=== PATIENT | female | born 1975 | race Two or more races ===

== ENCOUNTER 2018-10-23 16:01 | Emergency (ER) | payer SELFPAY ==
--- NOTE | 2018-10-23 16:45 | ER Document Report ---
ED Medical Screen (RME) - General Chief Complaint: Skin Sore(s) Stated Complaint: TOE PAIN Time Seen by Provider: 10/23/18 16:34 Notes: Patient is a 42-year-old female presents to the emergency department with a chief complaint of right great toe pain. Patient states she was seen at the urgent care 12 days ago and had the infection to the right great toe cut and drained. Patient states she was placed on antibiotics for a week which did not seem to help. Patient states that since then she has had an increase in pain that is now radiating to the medial aspect of the right foot. Patient reports that her tetanus shot is up-to-date. Patient states the original injury was 3 weeks ago when her toenail became loose. Patient states it has had minimal drainage from the site. Patient denies history of diabetes. Patient states she is to been taking 800 mg of ibuprofen every 4 hours for the discomfort. TRAVEL OUTSIDE OF THE [place] IN LAST 30 DAYS: No - Related Data Allergies/Adverse Reactions: Penicillins Allergy (Verified 10/23/18 16:03) Past Medical History - Social History Chew tobacco use (# tins/day): No Frequency of alcohol use: None Drug Abuse: None Renal/ Medical History: Denies: Hx Peritoneal Dialysis Physical Exam - Vital signs Vitals: Temp Pulse Resp BP Pulse Ox 98.2 F 59 L 14 126/79 H 98 10/23/18 16:05 10/23/18 16:05 10/23/18 16:05 10/23/18 16:05 10/23/18 16:05 - Extremities Notes: There is erythema and edema to the dorsal aspect of the right great toe. There appears to be a crusted drainage on the nail. There is no obvious swelling to the foot. Course - Re-evaluation Re-evalutation: 10/23/18 16:45 I have greeted and performed a rapid initial assessment of this patient. A comprehensive ED assessment and evaluation of the patient, analysis of test results and completion of the medical decision making process will be conducted by additional ED providers. - Vital Signs Vital signs: Temp Pulse Resp BP Pulse Ox 98.2 F 59 L 14 126/79 H 98 10/23/18 16:05 10/23/18 16:05 10/23/18 16:05 10/23/18 16:05 10/23/18 16:05
--- NOTE | 2018-10-23 17:31 | RADIOLOGY REPORT (SQ) ---
EXAM DESCRIPTION: FOOT RIGHT COMPLETE COMPLETED DATE/TIME: 10/23/2018 5:11 pm REASON FOR STUDY: right great toe pain and swelling COMPARISON: None. EXAM PARAMETERS: NUMBER OF VIEWS: Three views. TECHNIQUE: AP, lateral and oblique radiographic images acquired of the right foot. LIMITATIONS: None. FINDINGS: MINERALIZATION: Normal. BONES: No acute fracture or dislocation. No worrisome bone lesions. JOINTS: No effusion. SOFT TISSUES: Mild soft tissue swelling. No radiopaque foreign body. OTHER: No other significant finding. IMPRESSION: NO FRACTURE. TECHNICAL DOCUMENTATION: JOB ID: [id number] [place]-72 2010 [employer] All Rights Reserved Reading location - IP/workstation name: [email or web address]
[2018-10-23] MEDS ORDERED: LIDOCAINE 1% INJ-PF (10 MG/ML) 30 ML SDV INJ ONE ×2 (17:50→17:52)
[2018-10-23] MEDS ORDERED: LIDOCAINE 4%/TETRACAINE 0.5%/EPI 0.18% 5 ML TOPICAL SOLN TOP ONE (17:50)
--- NOTE | 2018-10-23 17:50 | ER Document Report ---
ED General - General Chief Complaint: Skin Sore(s) Stated Complaint: TOE PAIN Time Seen by Provider: 10/23/18 16:34 Primary Care Provider: DANNY WEST DPM [ACTIVE STAFF] - Follow up in 3-5 days Notes: Patient is a 42 year old female that presents to the emergency department for chief complaint of right great toe pain. Patient states that she had a toe infection about 2 weeks ago, was treated in urgent care, states that it was cut open and pus drainage came out she was placed on antibiotics, she states that it came back and it seems to be worse than it was initially, she describes her pain as a 7 out of 10 describes it is not constant aching pain that shoots up her right great toe, towards the foot, she denies history of diabetes. She states she did complete the course of antibiotics. She denies any fevers, chills, night sweats, chest pain, nausea, vomiting or abdominal pain, no other complaints at this time. She reports that she is had paronychia infections in the past, and had part of her nail removed on this toe many years ago. Past Medical History: Denies chronic medical conditions Past Surgical History: Social History: Denies tobacco, alcohol or drug use. Family History: Reviewed and noncontributory for presenting illness Allergies: Reviewed, see documented allergy list. REVIEW OF SYSTEMS: Other than noted above, the 12 point review of systems was reviewed with the patient and were negative, all pertinent findings are included in the HPI. PHYSICAL EXAMINATION: Vital signs reviewed, nursing noted reviewed. GENERAL: Well-appearing, well-nourished and in no acute distress. HEAD: Atraumatic, normocephalic. EYES: Eyes appear normal, sclera anicteric, conjunctiva are normal. ENT: Moist mucous membranes. NECK: Normal range of motion, supple without lymphadenopathy LUNGS: Breath sounds clear to auscultation bilaterally and equal. No wheezes rales or rhonchi. HEART: Regular rate and rhythm without murmurs EXTREMITIES: The right great toe, has an obvious paronychia, there is slight pus drainage at this time, and swelling and edema to the lateral aspect of the nail. There is tenderness to palpation to this area. Cap refills less than 3 seconds, the rest the patient's extremity exam is grossly unremarkable, good range of motion, and otherwise nontender. NEUROLOGICAL: No focal neurological deficits. Moves all extremities spontaneously Motor and sensory grossly intact on exam. PSYCH: Normal mood, normal affect. SKIN: Warm, Dry, normal turgor, no rashes or lesions noted on exposed skin TRAVEL OUTSIDE OF THE [place] IN LAST 30 DAYS: No - Related Data Allergies/Adverse Reactions: Penicillins Allergy (Verified 10/23/18 16:03) Past Medical History - Social History Smoking Status: Never Smoker Chew tobacco use (# tins/day): No Frequency of alcohol use: None Drug Abuse: None Family History: Reviewed & Not Pertinent Patient has suicidal ideation: No Patient has homicidal ideation: No Renal/ Medical History: Denies: Hx Peritoneal Dialysis Physical Exam - Vital signs Vitals: Temp Pulse Resp BP Pulse Ox 98.2 F 59 L 14 126/79 H 98 10/23/18 16:05 10/23/18 16:05 10/23/18 16:05 10/23/18 16:05 10/23/18 16:05 Course - Re-evaluation Re-evalutation: Patient seen and examined, vital signs reviewed. On my exam the patient was noted to have a significant right-sided paronychia, with adjacent abscess, this was treated with partial nail excision, and I&D of the abscess, and drainage, as noted and procedure section, patient tolerated the procedure well. We will place her on clindamycin, and advise follow-up with podiatry, patient was agreeable with this plan of care and discharged home. Of note x-rays were obtained in triage, and were negative for any bony injury or concern for possible osteomyelitis. Nor did the patient present with a clinical concern for osteomyelitis. - Vital Signs Vital signs: Temp Pulse Resp BP Pulse Ox 98.1 F 60 16 118/70 100 10/23/18 19:05 10/23/18 19:05 10/23/18 19:05 10/23/18 19:05 10/23/18 19:05 Procedures - Incision and Drainage Left Toe Great toe Type: Complex Anesthetic type: 1% Lidocaine mL's of anesthetic: 4 - Digial Block Blade size: 11 I&D procedure: Chlorprep applied, Shurclens applied, Sterile dressing applied Incision Method: Incision made with needle Amount/type of drainage: 3 Notes: Risks and benefits of the procedure were spine to the patient, and verbal consent was given, patient had paronychia, of the right great toe, digital block was performed with 1% lidocaine, patient tolerated well, after good local anesthesia, partial lateral nail removal was performed, the abscess was incised, and drained, there was initially liquid purulent discharge, then thicker purulent discharge, that was expelled after breaking up loculations, with scissors and forceps. Patient tolerated procedure well, it was irrigated with saline, and Shur-Clens, and dressed with a sterile dressing. Discharge - Discharge Clinical Impression: Paronychia Condition: Stable Disposition: HOME, SELF-CARE Instructions: Paronychia ([facility]) Additional Instructions: Please complete the entire course of antibiotics as prescribed, you should take [id number] Tylenol or Motrin for pain, keep it covered when wearing shoes, otherwise he may leave it open to air, please follow-up with the bus attendant/foot doctor, in 3 to 5 days, if needed. If your symptoms worsen, do not hesitate to return to the emergency department. Prescriptions: RX: Clindamycin HCl 300 mg PO TID #21 capsule Referrals: DANNY WEST DPM [ACTIVE STAFF] - Follow up in 3-5 days
[2018-10-23 19:07] VITALS: BP 118/70
== END 2018-10-23 19:07 | disposition home or self-care (01) ==
LOC: ER 16:01
PROC: 0H9NXZZ Drainage of Left Foot Skin, External Approach (ICD-10-PCS; principal; 2018-10-23)
DX: L03.032 Cellulitis of left toe (principal); L98.9 Disorder of the skin and subcutaneous tissue, unspecified; M79.644 Pain in right finger(s)
CPT/HCPCS: 73630; 10060; J3490 ×2; 99283